=== PATIENT | female | born 1975 | race Caucasian/White ===

== ENCOUNTER 2017-07-16 06:50 | Day surgery (SDC) | payer OTHER ==
[~2017-07-16] VITALS: Ht 162.6 cm; Wt 64.0 kg
[~2017-07-16 06:50] MED LIST: FISH OIL OMEGA1 EAC2 PO; INDERAL80 MG PO; NOHOMEMEDS; WOMEN'S DAILY1 EACH PO
[2017-07-16 07:10] VITALS: BP 123/80
[2017-07-16 14:02] VITALS: BP 112/64
[2017-07-16 14:10] VITALS: BP 118/64
[2017-07-16 15:10] VITALS: BP 118/64
== END 2017-07-16 15:30 | disposition home or self-care (01) ==
LOC: SDC 06:50
PROC: 0QBQ0ZZ Excision of Right Toe Phalanx, Open Approach (ICD-10-PCS; principal; 2017-07-16)
DX: M20.11 Hallux valgus (acquired), right foot (principal); M21.611 Bunion of right foot; Z87.891 Personal history of nicotine dependence; K21.9 Gastro-esophageal reflux disease without esophagitis; J45.909 Unspecified asthma, uncomplicated; E78.5 Hyperlipidemia, unspecified
CPT/HCPCS: 73630; 76000; C1713; J0690; J1100; J1170; J1885; J2250; J2405; J2795; S0020